=== PATIENT | female | born 1995 | race Caucasian/White ===

== ENCOUNTER 2018-05-03 01:08 | Emergency (ER) | payer OTHER ==
--- NOTE | 2018-05-03 01:13 | EDPHY ---
H & P Time Seen by Provider: 05/03/18 01:12 HPI/ROS: HPI CHIEF COMPLAINT: Abdominal pain HISTORY OF PRESENT ILLNESS: 22-year-old female, otherwise healthy but does have a history of depression, presents emergency room with sharp stabbing right upper quadrant epigastric abdominal pain started approximately an hour ago. She was sleeping it woke her from sleep. She has associated nausea with it without vomiting. Pain is rather in 10 sharp stabbing located right upper quadrant epigastric and radiates directly to her back. Denies any chest pain or pleuritic pain, denies hemoptysis, denies fever. She states she had a pot roast for dinner. This woke her from sleep and she arrived here by private vehicle. No diarrhea, no fever, no lower abdominal pain. No urinary symptoms. Past Medical History: Depression and anxiety Past Surgical History: Denies surgical history Social History: Denies daily use of drugs alcohol tobacco. Family History: Noncontributory ROS REVIEW OF SYSTEMS: A comprehensive 10 point review of systems is otherwise negative aside from elements mentioned in the history of present illness. Exam Constitutional nontoxic appearing in no acute distress triage nursing summary reviewed, vital signs reviewed, awake/alert. Eyes normal conjunctivae and sclera, EOMI, PERRLA. HENT normal inspection, atraumatic, moist mucus membranes, no epistaxis, neck supple/ no meningismus, no raccoon eyes. Respiratory clear to auscultation bilaterally, normal breath sounds, no respiratory distress, no wheezing. Cardiovascular rate normal, regular rhythm, no murmur, no edema, distal pulses normal. Gastrointestinal mild tender palpation right upper quadrant epigastric, no rebound, no guarding, normal bowel sounds, no distension, no pulsatile mass. Genitourinary no CVA tenderness. Musculoskeletal no midline vertebral tenderness, full range of motion, no calf swelling, no tenderness of extremities, no meningismus, good pulses, neurovascularly intact. Skin pink, warm, & dry, no rash, skin atraumatic. Neurologic awake, alert and oriented x 3, AAOx3, moves all 4 extremities equally, motor intact, sensory intact, CN II-XII intact, normal cerebellar, normal vision, normal speech. Psychiatric normal mood/affect. Heme/Lymph/Immune no lymphadenopathy. Differential diagnosis includes but is not limited to and in no particular order : Bowel obstruction, appendicitis, gallbladder disease, diverticulitis, colitis , enteritis, perforated viscus, gastritis, GERD, esophagitis, urinary tract infection, pyelonephritis, kidney stones Medical Decision Making: Plan for this patient IV establishment IV fluid bolus , GI cocktail, EKG, troponin, ultrasound right upper quadrant, and re-evaluate. Chest x-ray. Re-evaluation: EKG interpretation by me on record in [facility] system. Impression time of EKG 1:29 a.m., this is sinus rhythm rate of [address] elevation or ST depression or significant T-wave abnormalities. Nonischemic unremarkable EKG. Of note reported to me the patient is typically vegetarian however ate meat for the 1st time tonight and months. Ultrasound right upper quadrant called to me by Dr. Bradley, cholelithiasis but no evidence of acute cholecystitis. ED x-ray chest one view negative for acute cardiopulmonary disease. 0352: Patient re-evaluated resting comfortably no acute distress. She states she feels well. No further epigastric right upper quadrant pain. Patient's chest x-ray is unremarkable. Patient's gallbladder ultrasound shows gallstones but no evidence of acute cholecystitis. Recommend patient refrain from eating spicy fatty greasy foods. Return precautions discussed with her she develops worsening abdominal pain right upper quadrant epigastric pain, fever, vomiting she needs return emergency room. Most likely cause of abdominal pain this evening was that she is usually vegetarian she ate meat for the 1st time in a year. And gallstones. Source: Patient Constitutional: Initial Vital Signs Temperature (C) 36.7 C 05/03/18 01:11 Heart Rate 91 05/03/18 01:11 Respiratory Rate 20 05/03/18 01:11 Blood Pressure 136/80 H 05/03/18 01:11 O2 Sat (%) 99 05/03/18 01:11 O2 Delivery Mode Room Air Allergies/Adverse Reactions: No Known Allergies Allergy (Unverified 05/03/18 01:10) Home Medications: Medication Instructions Recorded Ranitidine HCl [Zantac] 150 mg PO DAILY #14 tablet 05/03/18 Wellbutrin Sr 05/03/18 Medical Decision Making - Data Points Laboratory Results: Laboratory Results 05/03/18 02:05 05/03/18 02:05 05/03/18 05/03/18 05/03/18 03:30 02:14 02:05 WBC RBC Hgb Hct MCV MCH MCHC RDW Plt Count MPV Neut % (Auto) Lymph % (Auto) [place] % (Auto) Eos % (Auto) Baso % (Auto) Nucleat RBC Rel Count Absolute Neuts (auto) Absolute Lymphs (auto) Absolute Monos (auto) Absolute Eos (auto) Absolute Basos (auto) Absolute Nucleated RBC Immature Gran % Immature Gran # Sodium Potassium Chloride Carbon Dioxide Anion Gap BUN Creatinine Estimated GFR Glucose Calcium Total Bilirubin Conjugated Bilirubin Unconjugated Bilirubin AST ALT Alkaline Phosphatase POC Troponin I 0.00 ng/mL ng/mL (0.00-0.08) Total Protein Albumin Lipase Beta HCG, Qual NEGATIVE Urine Color YELLOW Urine Appearance CLEAR Urine pH 6.0 (5.0-7.5) Ur Specific [place] 1.010 (1.002-1.030) Urine Protein NEGATIVE (NEGATIVE) Urine Ketones NEGATIVE (NEGATIVE) Urine Blood NEGATIVE (NEGATIVE) Urine Nitrate NEGATIVE (NEGATIVE) Urine Bilirubin NEGATIVE (NEGATIVE) Urine Urobilinogen NEGATIVE EU EU (0.2-1.0) Ur Leukocyte Esterase 2+ H (NEGATIVE) Urine RBC 1-3 /hpf /hpf (0-3) Urine WBC 15-25 /hpf H /hpf (0-3) Ur Epithelial Cells TRACE /lpf /lpf (NONE-1+) Urine Glucose NEGATIVE (NEGATIVE) 05/03/18 05/03/18 02:05 02:05 WBC 10.56 10^3/uL H 10^3/uL (3.80-9.50) RBC 4.42 10^6/uL 10^6/uL (4.18-5.33) Hgb 13.3 g/dL g/dL (12.6-16.3) Hct 39.1 % % (38.0-47.0) MCV 88.5 fL fL (81.5-99.8) MCH 30.1 pg pg (27.9-34.1) MCHC 34.0 g/dL g/dL (32.4-36.7) RDW 12.7 % % (11.5-15.2) Plt Count 302 10^3/uL 10^3/uL (150-400) MPV 9.1 fL fL (8.7-11.7) Neut % (Auto) 73.7 % % (39.3-74.2) Lymph % (Auto) 19.7 % % (15.0-45.0) [place] % (Auto) 5.3 % % (4.5-13.0) Eos % (Auto) 0.8 % % (0.6-7.6) Baso % (Auto) 0.4 % % (0.3-1.7) Nucleat RBC Rel Count 0.0 % % (0.0-0.2) Absolute Neuts (auto) 7.79 10^3/uL H 10^3/uL (1.70-6.50) Absolute Lymphs (auto) 2.08 10^3/uL 10^3/uL (1.00-3.00) Absolute Monos (auto) 0.56 10^3/uL 10^3/uL (0.30-0.80) Absolute Eos (auto) 0.08 10^3/uL 10^3/uL (0.03-0.40) Absolute Basos (auto) 0.04 10^3/uL 10^3/uL (0.02-0.10) Absolute Nucleated RBC 0.00 10^3/uL 10^3/uL (0-0.01) Immature Gran % 0.1 % % (0.0-1.1) Immature Gran # 0.01 10^3/uL 10^3/uL (0.00-0.10) Sodium 140 mEq/L mEq/L (135-145) Potassium 4.4 mEq/L mEq/L (3.3-5.0) Chloride 106 mEq/L mEq/L (97-110) Carbon Dioxide 23 mEq/l mEq/l (22-31) Anion Gap 11 mEq/L mEq/L (8-16) BUN 15 mg/dL mg/dL (7-23) Creatinine 0.6 mg/dL mg/dL (0.6-1.0) Estimated GFR > 60 Glucose 107 mg/dL H mg/dL (70-100) Calcium 9.4 mg/dL mg/dL (8.5-10.4) Total Bilirubin 0.2 mg/dL mg/dL (0.1-1.4) Conjugated Bilirubin 0.2 mg/dL mg/dL (0.0-0.5) Unconjugated Bilirubin 0.0 mg/dL mg/dL (0.0-1.1) AST 72 IU/L H IU/L (14-46) ALT 75 IU/L H IU/L (9-52) Alkaline Phosphatase 73 IU/L IU/L (38-126) POC Troponin I Total Protein 7.2 g/dL g/dL (6.3-8.2) Albumin 4.1 g/dL g/dL (3.5-5.0) Lipase 58 IU/L IU/L (23-300) Beta HCG, Qual Urine Color Urine Appearance Urine pH Ur Specific [place] Urine Protein Urine Ketones Urine Blood Urine Nitrate Urine Bilirubin Urine Urobilinogen Ur Leukocyte Esterase Urine RBC Urine WBC Ur Epithelial Cells Urine Glucose Medications Given: Discontinued Medications Al Hydroxide/Mg Hydroxide (Maalox Susp) 30 ml PO ONCE ONE Stop: 05/03/18 01:19 Last Admin: 05/03/18 01:31 Dose: 30 ml Hyoscyamine Sulfate (Levsin, Hyomax-Sl) 0.25 mg PO ONCE ONE Stop: 05/03/18 01:19 Last Admin: 05/03/18 01:30 Dose: 0.25 mg Sodium Chloride (Ns) 1,000 mls @ 0 mls/hr IV EDNOW ONE; Wide Open PRN Reason: Protocol Stop: 05/03/18 01:19 Last Admin: 05/03/18 02:06 Dose: 1,000 mls Lidocaine (Lidocaine 2% Viscous) 15 ml PO ONCE ONE Stop: 05/03/18 01:19 Last Admin: 05/03/18 01:31 Dose: 15 ml Point of Care Test Results: Chemistry 05/03/18 02:14 POC Troponin I 0.00 ng/mL ng/mL (0.00-0.08) Departure - Departure Disposition: Home, Routine, Self-Care Clinical Impression: Gallstones Gastritis Qualifiers: Gastritis type: unspecified gastritis Chronicity: acute Gastritis bleeding: without bleeding Qualified Code(s): K29.00 - Acute gastritis without bleeding Condition: Good Instructions: Gastritis (ED), Biliary Colic (ED), Gallstones (ED) Additional Instructions: 1. [place] diet over the next 12:48 p.m.. No spicy fatty greasy foods. 2. Follow up with her primary care doctor 3. Return emergency room if you have worsening abdominal pain vomiting fever. Referrals: Robin Cunningham MD [Primary Care Provider] - As per Instructions Prescriptions: Ranitidine HCl [Zantac] 150 mg PO DAILY #14 tablet
[2018-05-03] MEDS ORDERED: LIDOCAINE 2% VISCOUS 15 ML UDCUP PO ONE (01:18)
[2018-05-03] MEDS ORDERED: NS 1,000 ML IV ONE (01:18)
[2018-05-03] MEDS ORDERED: MAG HYDROX/AL HYDROX/SIMETH 30 ML UDCUP PO ONE (01:18)
[2018-05-03] MEDS ORDERED: HYOSCYAMINE SULFATE 0.125 MG TAB PO ONE (01:18)
--- NOTE | 2018-05-03 01:31 | CPEKG ---
Heart Rate: 91 RR Interval: 659 P-R Interval: 148 QRSD Interval: 84 QT Interval: 352 QTC Interval: 434 P [place]: 55 QRS [place]: 37 T Wave [place]: 28 EKG Severity - NORMAL ECG - EKG Impression: SINUS RHYTHM Electronically Signed By: Dante Andrews 04-May-2018 06:53:02
[2018-05-03 02:18] LABS: PLATELET COUNT 302 10^3/uL (150-400)
[2018-05-03 04:03] VITALS: BP 110/70
== END 2018-05-03 03:57 | disposition home or self-care (01) ==
DX: K29.00 Acute gastritis without bleeding (principal); K80.20 Calculus of gallbladder without cholecystitis without obstruction; E86.9 Volume depletion, unspecified
CPT/HCPCS: 84484-PO

== ENCOUNTER → 2018-05-23 | Outpatient (CLI) | payer OTHER | LOC: FIMAGING 08:02 | PROVIDERS: ATTEND Internal Medicine | DX: R10.11 Right upper quadrant pain (principal); R11.0 Nausea; R16.0 Hepatomegaly, not elsewhere classified; Z87.19 Personal history of other diseases of the digestive system | CPT/HCPCS: 78226; A9537 ==

== ENCOUNTER → 2018-09-09 | Outpatient (CLI) | payer OTHER ==
[~2018-09-09] MED LIST: IOPAMIDOL (ISOVUE-300) 100 ML BTL ONE
== END ==
LOC: FIMAGING 08:53
PROVIDERS: ATTEND Physician Assistant
DX: K80.20 Calculus of gallbladder without cholecystitis without obstruction (principal)
CPT/HCPCS: Q9967

== ENCOUNTER 2018-09-27 12:57 | Day surgery (SDC) | payer OTHER ==
[~2018-09-27 12:57] MED LIST changes: -IOPAMIDOL (ISOVUE-300) 100 ML BTL ONE; +cefOXitin SODIUM 2 GM in NS 100 ML IV ONE
[2018-09-27] MEDS ORDERED: LR 1,000 ML IV ONE (13:18)
[2018-09-27] MEDS ORDERED: BUPIVACAINE 0.5% 30 ML SDV ONE (13:52)
[2018-09-27] MEDS ORDERED: HEPARIN 1000 UNIT/1 ML MDV ONE (13:53)
[2018-09-27] MEDS ORDERED: ceFAZolin 1 GM/5 ML SYR ONE (13:53)
[2018-09-27] MEDS ORDERED: ONDANSETRON 4 MG/2 ML VIAL IVP PRN (14:18)
[2018-09-27] MEDS ORDERED: DEXAMETHASONE 4 MG/ML VIAL IVP PRN (14:18)
[2018-09-27] MEDS ORDERED: fentaNYL 100 MCG/2 ML INJ IVP PRN (14:18)
[2018-09-27] MEDS ORDERED: HYDROmorphONE/DILAUDID 2 MG/ML INJ IVP PRN (14:18)
[2018-09-27] MEDS ORDERED: ALBUTEROL 3 ML DEYVIAL IH PRN (14:18)
[2018-09-27] MEDS ORDERED: ACETAMINOPHEN 500 MG TAB PO PRN (14:18)
[2018-09-27] MEDS ORDERED: MIDAZOLAM 2 MG/2 ML VIAL IVP ONE (14:18)
[2018-09-27] MEDS ORDERED: NALOXONE HCL 0.4 MG/ML INJ IVP PRN (14:18)
[2018-09-27] MEDS ORDERED: oxyCODONE IR 5 MG TAB PO PRN (14:18)
--- NOTE | 2018-09-27 14:20 | PDANEPAE ---
ANE History of Present Illness Mariana MORRIS Past Medical History - Cardiovascular History Hx Hypertension: No Hx Arrhythmias: No Hx Chest Pain: No Hx Coronary Artery / Peripheral Vascular Disease: No Hx CHF / Valvular Disease: No Hx Palpitations: No - Pulmonary History Hx COPD: No Hx Asthma/Reactive Airway Disease: No Hx Recent Upper Respiratory Infection: No Hx Oxygen in Use at Home: No Hx Sleep Apnea: No Sleep Apnea Screening Result - Last Documented: Negative - Neurologic History Hx Cerebrovascular Accident: No Hx Seizures: No Hx Dementia: No - Endocrine History Hx Diabetes: No - Renal History Hx Renal Disorders: No - Liver History Hx Hepatic Disorders: No - Neurological & Psychiatric Hx Hx Neurological and Psychiatric Disorders: Yes Neurological / Psychiatric History Comment: anxiety. 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 athletes foot 2 weeks ago - Chronic Pain History Chronic Pain: No - Surgical History Prior Surgeries: wisdom teeth with novacaine only ANE Review of Systems Review of Systems: - Exercise capacity METS (RN): 4 METS ANE Patient History - Allergies Allergies/Adverse Reactions: No Known Allergies Allergy (Verified 09/26/18 16:50) - Home Medications Home Medications: Klonopin HS 09/26/18 [Last Taken 09/25/18] - NPO status NPO Since - Liquids (Date): 09/27/18 NPO Since - Liquids (Time): 09:00 NPO Since - Solids (Date): 09/26/18 NPO Since - Solids (Time): 20:00 - Smoking Hx Smoking Status: Former smoker - Family Anes Hx Family Hx Anesthesia Complications: none ANE Labs/Vital Signs - Vital Signs Blood Pressure: 100/69 Heart Rate: 86 Respiratory Rate: 18 O2 Sat (%): 98 Height: 154.94 cm Weight: 74.843 kg ANE Physical Exam - Airway Neck exam: FROM Mallampati Score: Class 2 Mouth exam: normal dental/mouth exam - Pulmonary Pulmonary: clear to auscultation - Cardiovascular Cardiovascular: regular rate and rhythym - ASA Status ASA Status: I ANE Anesthesia Plan Anesthesia Plan: general endotracheal anesthesia
[2018-09-27] MEDS ORDERED: fentaNYL 100 MCG/2 ML INJ ONE ×3 (14:21→16:24)
[2018-09-27] MEDS ORDERED: PROPOFOL 200 MG/20 ML VIAL ONE (14:21)
[2018-09-27] MEDS ORDERED: DEXAMETHASONE 4 MG/ML VIAL ONE (14:32)
[2018-09-27] MEDS ORDERED: ONDANSETRON 4 MG/2 ML VIAL ONE (14:32)
[2018-09-27] MEDS ORDERED: ROCURONIUM 50 MG/5 ML VIAL ONE (14:32)
[2018-09-27] MEDS ORDERED: KETOROLAC 30 MG/1 ML SDV ONE (15:52)
--- NOTE | 2018-09-27 16:09 | POSTANESTH ---
Post Anesthetic Evaluation Cardiovascular Status: Normal, Stable Respiratory Status: Normal, Stable Level of Consciousness/Mental Status: Can Participate in Eval, Alert and Oriented Pain Control: Adequate, Prn Tx Ordered Nausea/Vomiting Control: Adequate, Prn Tx Ordered Complications Possibly Related to Anesthesia: None Noted
[2018-09-27] MEDS ORDERED: HYDROCODONE/APAP 5/325 TAB PO PRN (17:04)
[2018-09-27] MEDS ORDERED: HYDROCODONE/APAP 5/325 TAB ONE (17:05)
[2018-09-27 18:21] VITALS: BP 129/69
--- NOTE | 2018-09-28 17:05 | GOP ---
DATE OF OPERATION: 09/27/2018 SURGEON: Isai Brown MD SCHOOL TEACHER: JOE Rivera ANESTHESIOLOGIST: Dr. London PREOPERATIVE DIAGNOSIS: Symptomatic cholelithiasis and cholecystitis. POSTOPERATIVE DIAGNOSIS: Symptomatic cholelithiasis and cholecystitis. PROCEDURE PERFORMED: Laparoscopic cholecystectomy and wedge liver biopsy. FINDINGS: The patient was found to have a small ducts. She had multiple gallstones. The gallbladde r was mildly inflamed. The liver appeared to be grossly normal. DESCRIPTION OF PROCEDURE: The patient was taken to the operating room where she received satisfactor y general endotracheal anesthesia by Dr. London. She was placed in the supine position, prepped and d raped in the usual sterile fashion. A periumbilical incision was made. Veress needle was inserted. Pneumoperitoneum was established. T rocar was introduced. Laparoscope introduced. Good visualization was obtained. three other trocars were placed under direct vision. The gallbladder was elevated up. Adhesions were taken down. The cystic triangle was carefully exposed. There was a moderate amount of edema in this area. The cysti c duct and cystic artery were dissected free with care to avoid injury to the common bile duct, which was clearly visualized. The gallbladder was from the hepatic bed, and then, the good juan r view was established, and the duct and artery were multiply hemoclipped, and divided again with car e to avoid injury to the common bile duct. The peritoneum of the gallbladder was incised. The gallb ladder was dissected free from the bed and hepatic fossa, extracted through the upper midline port si te. Hemostasis was assured. The wound was irrigated. A small wedge liver biopsy was taken of the right lobe of the liver and the wound was closed with electrocautery. The biopsy was taken because of her slightly elevated liver function tests. Her liver appeared to be completely normal. Hemostasis was successful in the wound. The trocars were removed under direct vision. Trocar sites were closed wit h 0 Vicryl for the fascia, 4-0 Monocryl subcuticular stitch for the skin. All layers were infiltrate d with 0.5% Marcaine. Blood loss was negligible. Taken to the recovery room in good condition. /[id number]/MODL
== END 2018-09-27 18:10 | disposition home or self-care (01) ==
LOC: FSGY 12:57
PROVIDERS: ATTEND Surgery
DX: K80.18 Calculus of gallbladder with other cholecystitis without obstruction (principal); R94.5 Abnormal results of liver function studies; F41.8 Other specified anxiety disorders
CPT/HCPCS: J0694; J1100; J1885; J2250; J2405; J2704; J3010